=== PATIENT | male | born 1975 | race Caucasian/White ===

== ENCOUNTER 2019-04-19 16:35 | Emergency (ER) | payer BC ==
[~2019-04-19] VITALS: Ht 165.1 cm; Wt 90.0 kg
[~2019-04-19 16:35] MED LIST: NAPROSYN500 MG OR; NO HOME MEDS
[2019-04-19] MEDS ORDERED: FLONASE AL50 MCG/ACT NAB (16:48)
[2019-04-19] MEDS ORDERED: CLEOCIN300 MG PO (18:28)
[2019-04-19 18:45] VITALS: BP 116/84
== END 2019-04-19 19:00 | disposition home or self-care (01) | DRG 605 ==
LOC: ED 16:35 → EDBD 16:56 → ED 19:00
PROC: 0HQMXZZ Repair Right Foot Skin, External Approach (ICD-10-PCS; principal; 2019-04-19)
DX: S91.114A Laceration without foreign body of right lesser toe(s) without damage to nail, initial encounter (principal); S91.131A Puncture wound without foreign body of right great toe without damage to nail, initial encounter; W22.8XXA Striking against or struck by other objects, initial encounter; Y93.H9 Activity, other involving exterior property and land maintenance, building and construction; Y92.007 Garden or yard of unspecified non-institutional (private) residence as the place of occurrence of the external cause